=== PATIENT | male | born 1975 | race Caucasian/White ===

== ENCOUNTER 2020-03-20 14:02 | Outpatient (CLI) | payer BC ==
[~2020-03-20 14:02] MED LIST: Iopamidol-370 76% 500 ML 1 ML ONE
--- NOTE | 2020-03-20 15:11 | CT ---
Exam: Abdomen CT with and without contrast Pelvic CT with and without contrast HISTORY: Microscopic hematuria COMPARISON: None TECHNIQUE: Abdomen and pelvic CT is performed with and without contrast following urogram protocol. C oronal reformatted images are submitted for interpretation FINDINGS: Lung bases: No masses or consolidation Heart: Normal heart size. No significant pericardial fluid Aorta: Normal caliber aorta. No periaortic fat stranding Liver: Appropriate enhancement. No enhancing masses. Spleen: Appropriate enhancement Pancreas: Appropriate enhancement Adrenal glands: Symmetric enhancement Lymph nodes: No gastrohepatic, retrocrural or periportal lymphadenopathy Portal vein: Patent Gallbladder: Unremarkable Kidneys: Noncontrast: Nonobstructing calculus in the right renal pelvis. Bilaterally no obstructive uropathy. Contrast: Symmetric enhancement of the kidney. There is a hypodensity in the midpole the right kidney , measuring 0.9 x 0.9 cm. Questionable small focus of enhancement along the inferior margin of this hypodensity. No additional hypodensities in the right renal cortex. No significant hypodensity in the left renal cortex. The size of the lesion limits evaluation for attenuation coefficient on the precontrast, contrast and delayed images. Delayed: Symmetric excretion of contrast into the intrauterine extra renal collecting system. No evid ence of obstruction. No filling.defects. Mesentery: No mass, nephropathy, free air or free fluid Alimentary canal: Limited evaluation due to lack of oral contrast administration. No evidence of татьяна l obstruction. The ileocecal junction is normal. Normal caliber appendix. Scattered fecal material in a nondistended/nondilated colon. CT PELVIS: Reproductive organs and pelvis: No mass, adenopathy, free air or free fluid. Urinary bladder: Normal mucosa. Contrast opacifies the dependent portion of the urinary bladder, with out filling defect. No lytic or blastic lesions in the osseous structures IMPRESSION: 1. Nonobstructing calculus in the right renal pelvis. Bilaterally no obstructive uropathy 2. Indeterminate hypodensity in the mid right renal cortex with a questionable small focus of nodular enhancement along the inferior portion. Follow-up CT in one year is recommended. Transcribed Date/Time: 03/20/2020 5:55 PM
== END 2020-03-20 14:03 | disposition home or self-care (01) ==
LOC: BICCT 14:02
PROVIDERS: ATTEND Urology
DX: R31.29 Other microscopic hematuria (principal); N20.0 Calculus of kidney; R93.421 Abnormal radiologic findings on diagnostic imaging of right kidney
CPT/HCPCS: 74178; Q9967

== ENCOUNTER 2021-03-20 08:13 | Outpatient (CLI) | payer BC ==
[2021-03-20] MEDS ORDERED: Iopamidol-370 76% 500 ML 1 ML ONE (09:57)
== END 2021-03-20 08:14 | disposition home or self-care (01) ==
LOC: BICCT 08:13
PROVIDERS: ATTEND Urology
DX: N28.1 Cyst of kidney, acquired (principal); N20.0 Calculus of kidney
CPT/HCPCS: 74170